=== PATIENT | male | born 1940 | race Caucasian/White ===

== ENCOUNTER 2018-05-08 12:28 | Emergency (ER) | payer OTHER ==
[2018-05-08] MEDS ORDERED: ASPIRIN 325 MG TABLET PO ONE (12:54)
--- NOTE | 2018-05-08 12:55 | ER Document Report ---
ED Medical Screen (RME) - General Chief Complaint: Chest Pain Stated Complaint: UPPER CHEAT AND BACK PAIN Time Seen by Provider: 05/08/18 12:53 Mode of Arrival: Ambulatory Information source: Patient TRAVEL OUTSIDE OF THE [place] IN LAST 30 DAYS: No - HPI Patient complains to provider of: chest, neck and LBP Onset: Other - pt. with episodes of chest, posterior neck and LBP for the past few days with exacerbation this am. Did not take ASA today. - Related Data Allergies/Adverse Reactions: No Known Allergies Allergy (Verified 05/08/18 12:29) Physical Exam - Vital signs Vitals: Temp Pulse Resp BP Pulse Ox 98.1 F 88 16 167/91 H 98 05/08/18 12:47 05/08/18 12:47 05/08/18 12:47 05/08/18 12:47 05/08/18 12:47 Course - Vital Signs Vital signs: Temp Pulse Resp BP Pulse Ox 98.1 F 88 16 167/91 H 98 05/08/18 12:47 05/08/18 12:47 05/08/18 12:47 05/08/18 12:47 05/08/18 12:47
--- NOTE | 2018-05-08 13:45 | RADIOLOGY REPORT (SQ) ---
EXAM DESCRIPTION: CHEST 2 VIEWS COMPLETED DATE/TIME: 05/08/2018 1:31 pm REASON FOR STUDY: CP COMPARISON: None. TECHNIQUE: Frontal and lateral radiographic views of the chest acquired. NUMBER OF VIEWS: Two view. LIMITATIONS: None. FINDINGS: LUNGS AND PLEURA: No opacities, masses or pneumothorax. No pleural effusion. MEDIASTINUM AND HILAR STRUCTURES: No masses or contour abnormalities. HEART AND VASCULAR STRUCTURES: Heart normal size. No evidence for failure. BONES: No acute findings. HARDWARE: None in the chest. OTHER: No other significant finding. IMPRESSION: NO SIGNIFICANT RADIOGRAPHIC FINDING IN THE CHEST. TECHNICAL DOCUMENTATION: JOB ID: [id number] [email or web address]- All Rights Reserved Reading location - IP/workstation name: [email or web address]
[2018-05-08 14:10] LABS: ABSOLUTE BASOPHILS # (AUTO) 0.1 10^3/uL (0.0-0.2); ABSOLUTE EOSINOPHILS # (AUTO) 0.1 10^3/uL (0.0-0.6); ABSOLUTE LYMPHOCYTES (AUTO) 1.3 10^3/uL (0.5-4.7); ABSOLUTE MONOCYTES (AUTO) 0.5 10^3/uL (0.1-1.4); ABSOLUTE NEUT (AUTO) 6.2 10^3/uL (1.7-8.2); BASOPHILS % (AUTO) 0.8 % (0-2); EOSINOPHILS % (AUTO) 1.7 % (0-6); HEMATOCRIT 45.2 % (37.9-51.0); HEMOGLOBIN 15.5 g/dL (13.5-17.0); LYMPHOCYTES % (AUTO) 15.6 % (13-45); MEAN CORPUSCULAR HGB CONC 34.3 g/dL (32.0-36.0); MEAN CORPUSCULAR VOLUME 90 fl (80-97); MONOCYTES % (AUTO) 6.5 % (3-13); PLATELET COUNT 289 10^3/uL (150-450); RED CELL DISTRIBUTION WIDTH 13.7 % (11.5-14.0); SEGMENTED NEUTROPHILS % (AUTO) 75.4 % (42-78); TOTAL CELLS COUNTED % (AUTO) 100 %; WHITE BLOOD COUNT 8.3 10^3/uL (4.0-10.5)
--- NOTE | 2018-05-08 14:14 | ER Document Report ---
ED General - General Chief Complaint: Chest Pain Stated Complaint: UPPER CHEAT AND BACK PAIN Time Seen by Provider: 05/08/18 12:53 Primary Care Provider: [facility] [Primary Care Provider] - Follow up as needed Mode of Arrival: Ambulatory TRAVEL OUTSIDE OF THE [place] IN LAST 30 DAYS: No - HPI Notes: Patient is a 77-year-old male with no significant past medical history who presents emergency department complaining of upper chest pain, jaw pain, and low back pain after eating. Patient states that this is been ongoing for the last week intermittently. He notices his symptoms flaring up after he eats food. The last episode was prior to arrival when he ranker milkshake. Patient states that the pain does not radiate otherwise. The pain has currently subsided and he is feeling well at this time. He is urinating normally and having normal bowel movements. Denies drug allergies. No significant cardiopulmonary medical history. No surgical history to his abdomen. Denies any prolonged immobilization, distance travel, recent surgery/trauma, personal cancer history, hormone use, smoking, or previous DVT/PE. Denies any headache, fever, neck p ain, URI, sore throat, palpitations, syncope, cough, shortness of breath, wheeze, dyspnea, abdominal pain, nausea/vomiting/diarrhea, urinary retention, dysuria, hematuria, loss of control of bowel or bladder, numbness/tingling, saddle anesthesia, muscle paralysis/weakness, or rash. - Related Data Allergies/Adverse Reactions: No Known Allergies Allergy (Verified 05/08/18 12:29) Past Medical History - General Information source: Patient - Social History Smoking Status: Never Smoker Chew tobacco use (# tins/day): No Frequency of alcohol use: Rare Drug Abuse: None Family History: Reviewed & Not Pertinent Patient has suicidal ideation: No Patient has homicidal ideation: No Renal/ Medical History: Denies: Hx Peritoneal Dialysis Past Surgical History: Reports: Hx Tonsillectomy Review of Systems - Review of Systems -: Yes All other systems reviewed and negative Physical Exam - Vital signs Vitals: Temp Pulse Resp BP Pulse Ox 98.1 F 88 16 167/91 H 98 05/08/18 12:47 05/08/18 12:47 05/08/18 12:47 05/08/18 12:47 05/08/18 12:47 - Notes Notes: PHYSICAL EXAMINATION: GENERAL: Well-appearing, well-nourished and in no acute distress. Pt is very pleasant, happy, laughing, comfortable. HEAD: Atraumatic, normocephalic. EYES: Pupils equal round and reactive to light, extraocular movements intact, sclera anicteric, conjunctiva are normal. ENT: Nares patent and without discharge. oropharynx clear without exudates. Tonsils absent. Moist mucous membranes. NECK: Normal range of motion, supple without lymphadenopathy LUNGS: Breath sounds clear to auscultation bilaterally and equal. No wheezes rales or rhonchi. HEART: Regular rate and rhythm without murmurs, rubs, gallops. ABDOMEN: Soft, nontender, nondistended abdomen. No guarding, no rebound. Normal bowel sounds present. No CVA tenderness bilaterally. Garcia neg. Musculoskeletal: FROM to passive/active. Strength 5+/5. Irene neg. No asymmetry to LE's. Extremities: No cyanosis, clubbing, or edema b/l. Peripheral pulses 2+. Capillary refill less than 3 seconds. NEUROLOGICAL: Normal speech, normal gait. PSYCH: Normal mood, normal affect. SKIN: Warm, Dry, normal turgor, no rashes or lesions noted. Course - Re-evaluation Re-evalutation: 05/08/18 14:45 Pt has worsening T wave inversions on EKG with a troponin of 0.221. Pt was ordered a heparin bolus/drip as well as a nitro drip (pt pain currently mild 1/5). Aspirin was given at triage. Call placed to [facility] for transfer and am waiting for a call back, but they currently do not have any beds. I called [facility] just a little while ago for another pt with similar situation and they do not have cardiac beds. 14:55 Call placed to [facility] who will call me back but state that they do have cardiac beds available. Pt is open to transfer anywhere at this time. Case being reviewed with Dr. Aguilera who is in agreement with transfer/plan. 05/08/18 15:10 I was able to speak with [facility] Cardio, Dr. Driver, who recommends Lipitor 80, Toprol 25, morphine for pain and accepted transfer to their facility. Pt is in agreement with plan. [facility] transfer cancelled. Pt has no new concerns or complaints and is relatively high spirits. 05/08/18 17:30 Pt has no new concerns or complaints. Vitals acceptable. Pt stable for transport. - Vital Signs Vital signs: Temp Pulse Resp BP Pulse Ox 98.1 F 88 11 L 164/109 H 96 05/08/18 12:47 05/08/18 12:47 05/08/18 15:01 05/08/18 15:00 05/08/18 15:01 - Laboratory Result Diagrams: 05/08/18 13:49 05/08/18 13:49 Laboratory results interpreted by me: 05/08/18 15:30 Urine Blood SMALL H Ur Leukocyte Esterase TRACE H Critical Care Note - Critical Care Note Total time excluding time spent on procedures (mins): 37 Discharge - Discharge Clinical Impression: NSTEMI (non-ST elevated myocardial infarction) Condition: Stable Disposition: [facility] Referrals: [facility] [Primary Care Provider] - Follow up as needed
[2018-05-08 14:24] LABS: ALANINE AMINOTRANSFERASE 26 U/L (21-72); ALBUMIN 4.5 g/dL (3.5-5.0); ALKALINE PHOSPHATASE 68 U/L (38-126); ANION GAP 11 (5-19); ASPARTATE AMINO TRANSFERASE 40 U/L (17-59); BILIRUBIN,DIRECT 0.3 mg/dL (0.0-0.4); BILIRUBIN,TOTAL 0.5 mg/dL (0.2-1.3); BLOOD UREA NITROGEN 18 mg/dL (7-20); CALCIUM 9.8 mg/dL (8.4-10.2); CARBON DIOXIDE 29 mmol/L (22-30); CHLORIDE 100 mmol/L (98-107); CREATINE KINASE 72 U/L (55-170); GLUCOSE 94 mg/dL (75-110); SODIUM 139.7 mmol/L (137-145)
[2018-05-08 14:29] LABS: LIPASE 124.3 U/L (23-300)
[2018-05-08 14:36] LABS: CREATINE KINASE MB 2.51 ng/mL (<4.55)
[2018-05-08 14:38] LABS: TROPONIN I 0.221 ng/mL
[2018-05-08] MEDS ORDERED: HEPARIN SOD (PORCINE) 1,000 UNIT/ML 10 ML VIAL IV ONE (14:41)
[2018-05-08] MEDS ORDERED: NITROGLYCERIN/D5W 50 MG/250 ML RTUINJ IV PRN (14:46)
[2018-05-08] MEDS ORDERED: METOPROLOL SUCCINATE 25 MG TAB.SR.24H PO ONE (15:09)
[2018-05-08] MEDS ORDERED: MORPHINE SULFATE 10 MG/ML INJ IV ONE (15:09)
[2018-05-08] MEDS ORDERED: ATORVASTATIN CALCIUM 80 MG TABLET PO ONE (15:09)
--- NOTE | 2018-05-08 15:09 | RADIOLOGY REPORT (SQ) ---
EXAM DESCRIPTION: U/S ABDOMEN LIMITED W/O DOP COMPLETED DATE/TIME: 05/08/2018 2:58 pm REASON FOR STUDY: back pain/chest pain after eating COMPARISON: None. TECHNIQUE: Dynamic and static grayscale images acquired of the abdomen and recorded on PACS. Aguso hannah selected color Doppler and spectral images recorded. LIMITATIONS: Study was terminated before complete evaluation due to patient condition. FINDINGS: PANCREAS: No masses. Visualized pancreatic duct normal caliber. LIVER: Probable fatty parenchyma. 2.7 cm cyst in the right lobe without suspicious features. LIVER VASCULATURE: Normal directional flow of the main portal vein and hepatic veins. GALLBLADDER: Stones are present. No gross wall thickening or pericholecystic fluid. ULTRASOUND-DETECTED HOLLIDAY'S SIGN: Positive per technologist. INTRAHEPATIC DUCTS AND COMMON DUCT: CBD and intrahepatic ducts normal caliber. No filling defects. INFERIOR VENA CAVA: Normal flow. AORTA: No aneurysm. RIGHT KIDNEY: Sizable cysts measuring over 7 cm. Limited assessment. PERITONEAL AND RIGHT PLEURAL SPACE: No ascites or effusions. OTHER: No other significant findings. IMPRESSION: 1. Cholelithiasis. 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 This could reflect acute cholecystitis. 2. Other findings as above. TECHNICAL DOCUMENTATION: JOB ID: [id number] [employer]- All Rights Reserved Reading location - IP/workstation name: [email or web address]
[2018-05-08] MEDS ORDERED: HEPARIN SODIUM,PORCINE/D5W 25,000 UNIT/250 ML RTUINJ IV PRN (15:11)
[2018-05-08] MEDS ORDERED: HEPARIN SOD (PORCINE) 1,000 UNIT/ML 10 ML VIAL IV PRN ×2 (15:27→18:02)
[2018-05-08 15:46] LABS: APPEARANCE,URINE CLEAR; BILIRUBIN,URINE NEGATIVE (NEGATIVE); COLOR,URINE STRAW; GLUCOSE, URINE NEGATIVE (NEGATIVE); KETONES,URINE NEGATIVE (NEGATIVE); LEUKOCYTE ESTERASE,URINE TRACE (NEGATIVE); NITRITE,URINE NEGATIVE (NEGATIVE); PROTEIN,URINE NEGATIVE (NEGATIVE); URINE SPECIFIC GRAVITY 1.005; UROBILINOGEN,URINE NEGATIVE mg/dL (<2.0)
[2018-05-08 15:58] VITALS: BP 164/109
--- NOTE | 2018-05-08 22:12 | EKG REPORT ---
SEVERITY:- ABNORMAL ECG - SINUS RHYTHM LAD, CONSIDER LEFT ANTERIOR FASCICULAR BLOCK PROBABLE ANTEROSEPTAL INFARCT, AGE INDETERM : Confirmed by: Brandy Bunn 08-May-2018 22:12:09
--- NOTE | 2018-05-08 22:12 | EKG REPORT ---
SEVERITY:- ABNORMAL ECG - SINUS RHYTHM LAD, CONSIDER LEFT ANTERIOR FASCICULAR BLOCK PROBABLE ANTEROSEPTAL INFARCT, AGE INDETERM ABNORMAL T, CONSIDER ISCHEMIA, ANT-LAT LEADS : Confirmed by: Brandy Bunn 08-May-2018 22:11:22
== END 2018-05-08 17:00 | disposition short-term general hospital (02) ==
LOC: ER 12:28
DX: I21.4 Non-ST elevation (NSTEMI) myocardial infarction (principal); R07.9 Chest pain, unspecified; M54.9 Dorsalgia, unspecified; R68.84 Jaw pain
CPT/HCPCS: 93005; 96376; 99291; 96365; 96366; 36415; 82553; 82550; 83690; 85025; 80053; 81001; 84484; 71046; 76705; 93010; J1644 ×2; J3490